=== PATIENT | male | born 2000 | race Caucasian/White ===

== ENCOUNTER 2024-03-27 21:13 | Emergency (ER) | payer OTHER | END 2024-03-27 22:31 | disposition home or self-care (01) | LOC: CSHERS 21:13 | DX: S70.02XA Contusion of left hip, initial encounter (principal); S40.819A Abrasion of unspecified upper arm, initial encounter; S80.819A Abrasion, unspecified lower leg, initial encounter; V49.49XA Driver injured in collision with other motor vehicles in traffic accident, initial encounter; Y93.89 Activity, other specified | CPT/HCPCS: 99283 ==